=== PATIENT | male | born 1995 | race Caucasian/White ===

== ENCOUNTER 2021-07-07 16:53 | Emergency (ER) | payer OTHER ==
[~2021-07-07] VITALS: Ht 177.8 cm; Wt 170.0 kg
[2021-07-07 19:28] VITALS: BP 129/89
== END 2021-07-07 19:48 | disposition home or self-care (01) | DRG 605 ==
LOC: ED 16:53
DX: S20.221A Contusion of right back wall of thorax, initial encounter (principal); V43.52XA Car driver injured in collision with other type car in traffic accident, initial encounter